=== PATIENT | female | born 2000 | race Caucasian/White ===

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

== ENCOUNTER 2021-04-26 16:03 | Emergency (ER) | payer OTHER ==
[~2021-04-26] VITALS: Ht 172.7 cm; Wt 70.3 kg
[~2021-04-26 16:03] MED LIST changes: +AMPHETAMINE SAL10 MG PO
[2021-04-26] MEDS ORDERED: ZOFRAN4 MG PO (18:11)
== END 2021-04-26 18:17 | disposition home or self-care (01) ==
LOC: ED 16:03
DX: O21.0 Mild hyperemesis gravidarum (principal); Z3A.10 10 weeks gestation of pregnancy; O99.511 Diseases of the respiratory system complicating pregnancy, first trimester; J45.909 Unspecified asthma, uncomplicated
CPT/HCPCS: 80048; 85025; 96374; 99284-25; J2405; J7030

== ENCOUNTER 2021-08-11 15:10 | Emergency (ER) | payer OTHER ==
[~2021-08-11] VITALS: Ht 172.7 cm; Wt 78.5 kg
[~2021-08-11 15:10] MED LIST changes: +ZOFRAN4 MG PO
[2021-08-11] MEDS ORDERED: CEPHALEXIN500 MG PO (17:46)
== END 2021-08-11 18:05 | disposition home or self-care (01) ==
LOC: ED 15:10
DX: O23.02 Infections of kidney in pregnancy, second trimester (principal); N12 Tubulo-interstitial nephritis, not specified as acute or chronic; O99.512 Diseases of the respiratory system complicating pregnancy, second trimester; J45.909 Unspecified asthma, uncomplicated; Z3A.26 26 weeks gestation of pregnancy
CPT/HCPCS: 81001; 96374; 99284-25; A9270; J0690

== ENCOUNTER 2021-11-17 16:33 | Inpatient (IN) | payer OTHER ==
[~2021-11-17 16:33] MED LIST changes: +CEPHALEXIN500 MG PO
--- NOTE | 2021-11-17 17:30 | NUR ---
RT COLLECTED RAPID COVID 19, RSV, AND FLU SWAB PER DR REQUEST USING IN HOUSE LAB WITH NO COMPLICATIONS AT THIS TIME.
--- NOTE | 2021-11-18 11:26 | PR ---
[facility] [address] [place], [place] [address] Signed PP Progress Notes Datetime Report Generated by CPN: 11/18/2021 11:26 SUBJECTIVE: [id number] Pain: Within Normal Limits Nausea/Vomiting: Denies Flatus: Yes Bowel Movement: No Vital Signs: [id number] Vital Signs: Reviewed; Within Normal Limits Cardiovascular: Normal Respiratory: Normal Abdomen/Uterus: Normal Lochia: Normal Vulva/Perineum: Not Done Breasts: Not Done CVA Tenderness: Normal Extremities: Normal Incision: Not Applicable Progress: Normal Exam Comments: Fundus firm U-2 nontender IMPRESSION/PLAN/PROCEDURES: [id number] Impression: Normal Progression Plan: Continue Present Management Progress Notes: Pt seen and examined. Doing well. Ambulating, voiding, and tolerating full diet. Pain and lochia minimal. well. No concerns. Anticipate d/c home tomorrow. Signing Physician: Lisset Pierre DO Copies: ~ *Electronically Signed* 11/18/21 1126 LISSET PIERRE DO PATIENT NAME: DYANA CEDENO PROGRESS NOTE DATE OF : 01 PHYSICIAN: LISSET PIERRE DO RPT #: [id number] REPORT IS CONFIDENTIAL AND NOT TO BE RELEASED WITHOUT AUTHORIZATION
== END 2021-11-19 18:00 | disposition home or self-care (01) | DRG 807 ==
LOC: FBCO 16:33 → FBC 16:55
PROVIDERS: ADMIT Obstetrics & Gynecology; ATTEND Obstetrics & Gynecology
PROC: 10E0XZZ Delivery of Products of Conception, External Approach (ICD-10-PCS; principal; 2021-11-17)
PROC: 3E0R3BZ Introduction of Anesthetic Agent into Spinal Canal, Percutaneous Approach (ICD-10-PCS; 2021-11-17)
PROC: 00HU33Z Insertion of Infusion Device into Spinal Canal, Percutaneous Approach (ICD-10-PCS; 2021-11-17)
PROC: 0HQ9XZZ Repair Perineum Skin, External Approach (ICD-10-PCS; 2021-11-17)
PROC: 3E033VJ Introduction of Other Hormone into Peripheral Vein, Percutaneous Approach (ICD-10-PCS; 2021-11-17)
DX: O42.02 Full-term premature rupture of membranes, onset of labor within 24 hours of rupture (principal); Z37.0 Single live birth; Z3A.40 40 weeks gestation of pregnancy; O70.0 First degree perineal laceration during delivery; O69.1XX0 Labor and delivery complicated by cord around neck, with compression, not applicable or unspecified; O48.0 Post-term pregnancy; O99.344 Other mental disorders complicating childbirth; F32.A Depression, unspecified; F41.9 Anxiety disorder, unspecified; O99.52 Diseases of the respiratory system complicating childbirth; J45.909 Unspecified asthma, uncomplicated; Z20.822 Contact with and (suspected) exposure to COVID-19; Z79.899 Other long term (current) drug therapy; Z79.51 Long term (current) use of inhaled steroids
CPT/HCPCS: 36415; 85027; 86850; 86900; 86901; 87502; A9270; C9803; J2590; U0003

== ENCOUNTER 2022-12-27 09:25 | Emergency (ER) | payer OTHER ==
[~2022-12-27] VITALS: Ht 152.4 cm; Wt 77.5 kg
[2022-12-27 09:48] LABS: BILIRUBIN, URINE NEGATIVE (negative); BLOOD/HGB, URINE TRACE-I (Negative); KETONE, URINE NEGATIVE (Negative); LEUK ESTERASE, URINE SMALL (negative); NITRITE, URINE NEGATIVE (negative); PH, URINE 6.5 (5-7)
[2022-12-27 10:01] LABS: BACTERIA, URINE 2+ /hpf (negative); CASTS, URINE NONE SEEN \\lpf; CRYSTALS, URINE NONE SEEN (0-1+); EPITHELIAL CELLS, URINE SQUAMOUS 1+ /lpf (0-1+); WHITE BLOOD CELLS, URINE 21-40 /HPF (0-5)
[2022-12-27 10:02] LABS: COLLECTION TYPE, URINE CLEAN CATCH; REFLEX CULTURE, URINE Yes (No)
[2022-12-27] MEDS ORDERED: CEPHALEXIN500 M1 PO (10:23)
[2022-12-27 10:35] VITALS: BP 110/77
== END 2022-12-27 10:35 | disposition home or self-care (01) ==
LOC: ED 09:25
PROVIDERS: Emergency Medicine
DX: N39.0 Urinary tract infection, site not specified (principal)
CPT/HCPCS: 81001; 84703; 87088; 99284; A9270

== ENCOUNTER 2023-01-30 22:29 | Emergency (ER) | payer BC, OTHER ==
[~2023-01-30] VITALS: Ht 172.7 cm; Wt 76.0 kg
[2023-01-30 23:25] LABS: BASOPHILS 0.3 % (0-2); EOSINOPHILS 0.6 % (0-6); HEMATOCRIT 38.9 % (35.0-50.0); LYMPHOCYTES 20.9 % (24-44); MCH 28.9 (27-36); MCHC 33.5 g/dl (30-36); MCV 86.4 fl (81-99); MONOCYTES 7.7 % (0-12); NEUTROPHILS 70.5 % (39-80); PLATELET COUNT 133 K/uL (140-440); RBC 4.51 M/ul (4.3-5.7); RDW 12.7 (10.5-15.0)
[2023-01-30 23:39] LABS: ALBUMIN 3.8 g/dL (3.4-5.0); ALBUMIN/GLOBULIN RATIO 1.19 (1.1-2.4); ANION GAP 13.4 (7-21); BILIRUBIN, TOTAL 0.5 ng/dL (0.2-1.0); BUN/CREATININE RATIO 21.42 (6.0-28.6); CALCIUM 8.8 mg/dL (8.5-10.1); CREATININE, SERUM 0.56 mg/dL (0.55-1.02); MAGNESIUM 1.8 mg/dL (1.8-2.4); POTASSIUM 3.4 mmol/L (3.5-5.1)
[2023-01-30 23:48] LABS: BILIRUBIN, URINE NEGATIVE (negative); BLOOD/HGB, URINE NEGATIVE (Negative); KETONE, URINE NEGATIVE (Negative); LEUK ESTERASE, URINE NEGATIVE (negative); NITRITE, URINE NEGATIVE (negative)
[2023-01-31 00:24] LABS: ABO O
[2023-01-31 00:25] LABS: RH POSITIVE
[2023-01-31] MEDS ORDERED: REGLAN10 MG PO (01:48)
[2023-01-31 02:12] VITALS: BP 98/53
== END 2023-01-31 02:10 | disposition home or self-care (01) ==
LOC: ED 22:29
PROVIDERS: Internal Medicine
DX: O21.0 Mild hyperemesis gravidarum (principal); Z3A.01 Less than 8 weeks gestation of pregnancy
CPT/HCPCS: 36415; 76801; 76817; 80053; 81003; 83735; 84702; 85025; 86900; 86901; 96374; 96375; 99284-25; J2765; J3411; J7030

== ENCOUNTER 2023-02-13 09:21 | Emergency (ER) | payer OTHER ==
[~2023-02-13] VITALS: Ht 172.7 cm; Wt 73.2 kg
[~2023-02-13 09:21] MED LIST changes: +REGLAN10 MG PO
--- OUTSIDE RECORDS SUMMARY | 2023-02-13 09:29 | XMS ---
PreManage Notification: ROASTING STICK DYANA ORTIZ Security [employer] Events No recent Security Events currently on file CRITERIA MET - [facility] - 2 Visits in 30 Days CARE PROVIDERS -Joni- Dentist: [facility]er [facility] PHONE: [phone] Gavino has no Care Guidelines for this patient. Megha VISIT COUNT (12 MO.) 3 [facility] TOTAL 3 NOTE: Visits indicate total known visits. ED/UCC VISIT TRACKING (12 MO.) 02/13/2023 09:21 [facility] TYPE: Emergency COMPLAINT: - VOMITING, 8 WKS PG 01/30/2023 22:30 [facility] [place] TYPE: Emergency COMPLAINT: - NAUSEA DIAGNOSES: - Less than 8 weeks gestation of - Mild hyperemesis gravidarum - Vomiting of , unspecified 12/27/2022 09:27 [facility] [place] TYPE: Emergency COMPLAINT: - ABDOMINAL PAIN DIAGNOSES: - Lower abdominal pain, unspecified - Urinary tract infection, site not specified INPATIENT VISIT TRACKING (12 MO.) No inpatient visits to display in this time frame [email or web address]
[2023-02-13 10:04] LABS: BASOPHILS 0.4 % (0-2); EOSINOPHILS 0.2 % (0-6); HEMATOCRIT 38.8 % (35.0-50.0); HEMOGLOBIN 13.2 g/dL (12.0-18.0); LYMPHOCYTES 18.4 % (24-44); MCH 29.4 (27-36); MCHC 34.1 g/dl (30-36); MCV 86.3 fl (81-99); MONOCYTES 5.6 % (0-12); NEUTROPHILS 75.4 % (39-80); PLATELET COUNT 108 K/uL (140-440); RBC 4.49 M/ul (4.3-5.7); RDW 12.9 (10.5-15.0)
[2023-02-13 10:12] LABS: ALBUMIN 3.8 g/dL (3.4-5.0); ALBUMIN/GLOBULIN RATIO 1.36 (1.1-2.4); ANION GAP 12.4 (7-21); BILIRUBIN, TOTAL 0.7 ng/dL (0.2-1.0); BUN/CREATININE RATIO 12.85 (6.0-28.6); CALCIUM 8.9 mg/dL (8.5-10.1); CREATININE, SERUM 0.7 mg/dL (0.55-1.02); POTASSIUM 3.4 mmol/L (3.5-5.1); PROTEIN, TOTAL 6.6 g/dL (6.4-8.2)
[2023-02-13 10:46] LABS: BILIRUBIN, URINE NEGATIVE (negative); BLOOD/HGB, URINE NEGATIVE (Negative); KETONE, URINE TRACE (Negative); LEUK ESTERASE, URINE TRACE (negative); NITRITE, URINE NEGATIVE (negative)
[2023-02-13 11:08] LABS: EPITHELIAL CELLS, URINE SQUAMOUS 2+ /lpf (0-1+); RED BLOOD CELLS, URINE 0-1 /hpf (0-5)
[2023-02-13 11:09] LABS: BACTERIA, URINE 1+ /hpf (negative); CASTS, URINE NONE SEEN \\lpf; COLLECTION TYPE, URINE CLEAN CATCH; CRYSTALS, URINE NONE SEEN (0-1+); REFLEX CULTURE, URINE No (No)
[2023-02-13] MEDS ORDERED: PROMETHAZINE HC25 M1 PO (11:20)
[2023-02-13 11:30] VITALS: BP 101/61
== END 2023-02-13 11:30 | disposition home or self-care (01) ==
LOC: ED 09:21
PROVIDERS: Emergency Medicine
DX: O21.0 Mild hyperemesis gravidarum (principal); Z3A.01 Less than 8 weeks gestation of pregnancy
CPT/HCPCS: 36415; 80053; 81001; 85025; 96361; 96374; 99284-25; J2765; J7030

== ENCOUNTER 2023-09-13 05:13 | Inpatient (IN) | payer BC, OTHER ==
[~2023-09-13 05:13] MED LIST changes: +PROMETHAZINE HC25 M1 PO
[2023-09-13] MEDS ORDERED: LACTATED RINGER'S 1,000 ML IV PRN (05:45)
[2023-09-13] MEDS ORDERED: MAGNESIUM HYDROXIDE/AL HYDROX 30 ML CUP PO PRN ×2 (05:45→07:45)
[2023-09-13] MEDS ORDERED: CALCIUM CARBONATE 500 MG CHEW PO PRN ×2 (05:45→07:45)
[2023-09-13] MEDS ORDERED: OXYTOCIN/DEXTROSE 5% 20 UNITS/100 ML BAG IV SCH (05:45)
[2023-09-13 05:58] LABS: HEMATOCRIT 38.6 % (35.0-50.0); HEMOGLOBIN 13.5 g/dL (12.0-18.0); MCH 30.3 (27-36); MCHC 34.8 g/dl (30-36); RBC 4.44 M/ul (4.3-5.7); RDW 13.7 (10.5-15.0)
[2023-09-13 06:15] LABS: AMPHETAMINES, URINE NEGATIVE (NEGATIVE); BARBITURATES, URINE NEGATIVE (NEGATIVE); BENZODIAZEPINE, URINE NEGATIVE (NEGATIVE); BUPRENORPHINE, URINE NEGATIVE (NEGATIVE); CANNABINOID, URINE NEGATIVE (NEGATIVE); COCAINE, URINE NEGATIVE (NEGATIVE); ECSTASY, URINE NEGATIVE (NEGATIVE); FENTANYL, URINE NEGATIVE (NEGATIVE); METHADONE, URINE NEGATIVE (NEGATIVE); OPIATES, URINE NEGATIVE (NEGATIVE); OXYCODONE, URINE NEGATIVE (NEGATIVE); PHENCYCLIDINE, URINE NEGATIVE (NEGATIVE)
[2023-09-13 06:34] LABS: ABO O; ANTIBODY SCREEN NEGATIVE; RH POSITIVE
[2023-09-13] MEDS ORDERED: ACETAMINOPHEN 325 MG TAB PO PRN (07:45)
[2023-09-13] MEDS ORDERED: HYDROCODONE/ACETA 5/325 TAB PO PRN (07:45)
[2023-09-13] MEDS ORDERED: IBUPROFEN 600 MG TAB PO PRN (07:45)
[2023-09-13] MEDS ORDERED: OXYCODONE HCL 5 MG TAB PO PRN (07:45)
[2023-09-13] MEDS ORDERED: OXYCODONE/APAP 5/325 TAB PO PRN (07:45)
[2023-09-13] MEDS ORDERED: BENZOCAINE 60 ML AEROSOL TOP PRN (07:45)
[2023-09-13] MEDS ORDERED: WITCH HAZEL/GLYCERIN 1 EA PAD TOP PRN (07:45)
[2023-09-13] MEDS ORDERED: MAGNESIUM HYDROXIDE 30 ML UDC PO PRN (07:45)
[2023-09-13] MEDS ORDERED: OXYTOCIN/0.9 % SODIUM CHLORIDE 500 ML IV SCH (07:45)
[2023-09-13] MEDS ORDERED: HYDROCORTISONE ACETATE 25 MG SUPP PR PRN (07:45)
[2023-09-13] MEDS ORDERED: SENNOSIDES/DOCUSATE 1 EA TAB PO SCH (09:00)
[2023-09-14 07:37] LABS: HEMOGLOBIN 12.6 g/dL (12.0-18.0); MCH 30.3 (27-36); MCHC 34.1 g/dl (30-36); MCV 88.9 fl (81-99); RBC 4.16 M/ul (4.3-5.7); RDW 13.3 (10.5-15.0)
== END 2023-09-14 12:20 | disposition home or self-care (01) | DRG 806 ==
LOC: FBCO 05:13 → FBC 05:27
PROVIDERS: ADMIT Obstetrics & Gynecology; ATTEND Obstetrics & Gynecology
PROC: 10907ZC Drainage of Amniotic Fluid, Therapeutic from Products of Conception, Via Natural or Artificial Opening (ICD-10-PCS; principal; 2023-09-13)
PROC: 10E0XZZ Delivery of Products of Conception, External Approach (ICD-10-PCS; principal; 2023-09-13)
DX: O99.344 Other mental disorders complicating childbirth (principal); O99.12 Other diseases of the blood and blood-forming organs and certain disorders involving the immune mechanism complicating childbirth; Z37.0 Single live birth; O99.354 Diseases of the nervous system complicating childbirth; D69.6 Thrombocytopenia, unspecified; Z3A.39 39 weeks gestation of pregnancy; F32.A Depression, unspecified; O99.52 Diseases of the respiratory system complicating childbirth; J45.909 Unspecified asthma, uncomplicated; O99.284 Endocrine, nutritional and metabolic diseases complicating childbirth; E03.9 Hypothyroidism, unspecified; F41.9 Anxiety disorder, unspecified; G47.00 Insomnia, unspecified; F90.9 Attention-deficit hyperactivity disorder, unspecified type
CPT/HCPCS: 36415; 80307; 85027; 86850; 86900; 86901; A9270; J2590; J7121